=== PATIENT | male | born 1965 | race Caucasian/White ===

== ENCOUNTER 2020-11-28 16:17 | Emergency (ER) | payer OTHER ==
[~2020-11-28 16:17] MED LIST: AUGMENTIN 875-1 EACH PO; IBUPROFEN600 MG PO; NORCO 5-325 TA1 EACH PO
[2020-11-28 21:32] LABS: HEMOGLOBIN 15.8 gm/dl (14.0-17.5); RED BLOOD COUNT 4.92 M/UL (4.20-5.50); WHITE BLOOD COUNT 5.1 K/UL (4.5-11.0)
[2020-11-28 21:53] LABS: BUN/CREATININE RATIO 9 (0-10)
[2020-11-29] MEDS ORDERED: DECADRON6 MG PO (00:28)
[2020-11-29] MEDS ORDERED: AUGMENTIN 500-1 EACH PO (00:28)
== END 2020-11-29 00:47 | disposition home or self-care (01) ==
LOC: ER1 16:17
PROVIDERS: Family Medicine
DX: U07.1 COVID-19 (principal); E86.0 Dehydration; K08.89 Other specified disorders of teeth and supporting structures
CPT/HCPCS: 0240U; 71045; 80053; 81001; 83605; 83690; 85025; 87081; 87880; 99284

== ENCOUNTER 2021-12-13 03:24 | Emergency (ER) | payer OTHER ==
[~2021-12-13 03:24] MED LIST changes: +AUGMENTIN 500-1 EACH PO; +DECADRON6 MG PO
[2021-12-13 04:23] LABS: HEMOGLOBIN 15.9 gm/dl (14.0-17.5); RED BLOOD COUNT 5.08 M/UL (4.20-5.50); WHITE BLOOD COUNT 11.8 K/UL (4.5-11.0)
[2021-12-13 04:42] LABS: BUN/CREATININE RATIO 10 (0-10)
[2021-12-13] MEDS ORDERED: AMOX TR-K CLV1 EAC4 PO (09:08)
== END 2021-12-13 09:30 | disposition home or self-care (01) ==
LOC: ER1 03:24
PROVIDERS: Student in an Organized Health Care Education/Training Program
DX: K57.32 Diverticulitis of large intestine without perforation or abscess without bleeding (principal)
CPT/HCPCS: 80053; 81001; 83690; 85025; 96374; 96375; 99284; J2270; J2405; Q9967